=== PATIENT | female | born 1970 | race Caucasian/White ===

== ENCOUNTER 2017-11-14 21:53 | Emergency (ER) | END 2017-11-15 01:29 | disposition home or self-care (01) ==

== ENCOUNTER 2018-05-06 21:57 | Emergency (ER) | END 2018-05-07 02:04 | disposition home or self-care (01) ==

== ENCOUNTER 2018-06-26 12:34 | Emergency (ER) | END 2018-06-26 15:39 | disposition home or self-care (01) ==

== ENCOUNTER 2019-06-03 16:35 | Emergency (ER) | payer BC, MEDICAID ==
[~2019-06-03] VITALS: Ht 154.9 cm; Wt 83.4 kg
[~2019-06-03 16:35] MED LIST: ACET-141 PO; ALPR1TAB2 PO; FIORICET PO; IBUP-1542 PO; IBUP800T48 PO; METH750T93 PO; ONDA4TAB14 PO
[2019-06-03 16:39] VITALS: Ht 154.9 cm; Wt 83.4 kg
[2019-06-03] MEDS ORDERED: ALPRAZOLAM 1 MG TAB PO ONE (17:30)
[2019-06-03 18:32] VITALS: BP 130/73; PULSE 71; RESP 18
== END 2019-06-03 18:32 | disposition home or self-care (01) ==
LOC: E/R 16:35
DX: F41.9 Anxiety disorder, unspecified (principal); F43.9 Reaction to severe stress, unspecified; R00.2 Palpitations
CPT/HCPCS: 93005; Z7502; Z7610